=== PATIENT | female | born 1975 | race Caucasian/White ===

== ENCOUNTER 2017-03-11 19:34 | Emergency (ER) | payer OTHER ==
[~2017-03-11] VITALS: Ht 162.6 cm; Wt 71.1 kg
[~2017-03-11 19:34] MED LIST: CIPRO500 MG PO; LEVAQUIN500 MG PO; LEXAPRO10 MG PO; MACROBID100 MG PO; MOTRIN600 MG PO; NOHOMEMEDS; NORCO 5/3251 TABLET PO; PERCOCET 5/31 TABLET PO; PRILOSEC40 MG PO; PYRIDIUM200 MG PO; VICODIN; ZOFRAN ODT4 MG PO
[2017-03-11 20:11] LABS: BASOPHIL COUNT 0.1 K/uL (0-0.1); EOSINOPHIL (%) 1.9 % (0-5); EOSINOPHIL COUNT 0.2 K/uL (0-0.3); HEMATOCRIT 38.5 % (36.0-46.0); IMMATURE GRANULOCYTE (%) 0.4 % (0.0-0.7); INSTRUMENT ABS NEUTROPHIL CT 7.5 K/uL; LYMPHOCYTE COUNT 2.4 K/uL (1.0-2.8); MCV 88.3 FL (83-99); MEAN PLAT.VOLUME 9.4 uM^3 (9.5-12.4); MONOCYTE (%) 6.3 % (3-12); MONOCYTE COUNT 0.7 K/uL (0-0.8); NEUTROPHIL (%) 68.9 % (45-76); NEUTROPHIL COUNT 7.5 K/uL (1.8-6.4); PLATELET COUNT 284 K/uL (156-360); RBC DIS.WIDTH-CV 13.3 % (11.8-14.6); RED BLOOD COUNT 4.36 M/uL (3.80-5.20); WHITE BLOOD COUNT 10.9 K/uL (4.1-10.2)
[2017-03-11 20:19] LABS: CHLORIDE 103 mEq/L (99-109); POTASSIUM 3.2 mEq/L (3.7-5.4); SODIUM 138 mEq/L (136-147)
[2017-03-11 20:21] LABS: GLUCOSE 186 mg/dL (70-99)
[2017-03-11 20:22] LABS: ANION GAP 10 MEQ/L (2-14)
[2017-03-11 20:23] LABS: TOTAL BILIRUBIN 0.3 mg/dL (0.0-1.0)
[2017-03-11 20:24] LABS: SERUM ETHYL ALCOHOL < 10 mg/dL
[2017-03-11 20:25] LABS: ALKALINE PHOSPHATASE 58 IU/L (3-129); GFR ESTIMATE (CALCULATED) > 59 mL/min/
[2017-03-11 20:27] LABS: UREA NITROGEN (BUN) 15 mg/dL (9-23)
[2017-03-11 20:28] LABS: SALICYLATE < 5.0 MG/DL (15-30)
[2017-03-11 20:34] LABS: QUANTITATIVE HCG < 4.0 MIU/ML
[2017-03-11] MEDS ORDERED: NARCAN4 MG NS (22:49)
[2017-03-11 23:22] VITALS: BP 111/80
== END 2017-03-11 23:23 | disposition home or self-care (01) ==
LOC: EME 19:34
PROVIDERS: Emergency Medicine
DX: T40.1X1A Poisoning by heroin, accidental (unintentional), initial encounter (principal); F11.20 Opioid dependence, uncomplicated; Z87.440 Personal history of urinary (tract) infections; Z87.891 Personal history of nicotine dependence
CPT/HCPCS: 80053; 84702; 85025; 99281; 99285; G0480; J2310; J2405; J7030